=== PATIENT | male | born 1935 | race Caucasian/White ===

== ENCOUNTER → 2016-09-15 | Outpatient (CLI) | payer OTHER, MEDICARE ==
[~2016-09-15] MED LIST: ALBUAER19 INH; BMX1 PO; DOXY100C41 PO; FLUT44AE INH; LORA-741 PO; METH1TAB81 PO; OMEP10CA2 PO
== END | disposition home or self-care (01) ==
LOC: C.LAB1850 09:54
PROVIDERS: ATTEND Internal Medicine Pulmonary Disease
DX: J44.9 Chronic obstructive pulmonary disease, unspecified (principal); M10.00 Idiopathic gout, unspecified site; J90 Pleural effusion, not elsewhere classified; N28.9 Disorder of kidney and ureter, unspecified; J47.9 Bronchiectasis, uncomplicated

== ENCOUNTER → 2017-03-27 | Outpatient (CLI) | payer OTHER, MEDICARE ==
[2017-03-27 12:38] LABS: BASO % 0.9 %; BASO ABS # 0.05 K/uL (0-0.2); COMPLETE YES; EOS % 5.2 %; HEMATOCRIT 43.5 % (42-52); IG% 0.2 %; LYMPH % 30.8 %; LYMPH ABS # 1.67 K/uL (1.2-3.4); MEAN CELL VOLUME 87.3 fL (80-100); MEAN CORPUSCULAR HEMOGLOBIN 29.7 pg (25-34); MEAN PLATELET VOLUME 9.9 fL (7.4-10.4); MONO % 10.5 %; NEUT % 52.4 %; PLATELET COUNT 220 K/uL (130-400); RED BLOOD COUNT 4.98 M/uL (4.7-6.1); WHITE BLOOD COUNT 5.42 K/uL (4.8-10.8)
[2017-03-27 12:40] LABS: ALT/SGPT 22 U/L (12-78); AST/SGOT 25 U/L (15-37); BLOOD UREA NITROGEN 20 mg/dl (7-18); BUN/CREATININE RATIO 11.7 (10-20); CALCIUM 8.9 mg/dl (8.5-10.1); CARBON DIOXIDE 27 mmol/L (21-32); CHLORIDE 105 mmol/L (98-107); GLUCOSE 84 mg/dl (70-99); SODIUM 138 mmol/L (136-145); URIC ACID 6.4 mg/dl (2.6-7.2)
[2017-03-27 12:51] LABS: ALB/GLOB RATIO 0.9 (0.9-2); ALKALINE PHOSPHATASE 92 U/L (45-117)
== END | disposition home or self-care (01) ==
LOC: C.LAB1850 10:13
PROVIDERS: ATTEND Internal Medicine Pulmonary Disease
DX: J90 Pleural effusion, not elsewhere classified (principal)

== ENCOUNTER → 2017-04-21 | Outpatient (CLI) | payer OTHER, MEDICARE ==
--- NOTE | 2017-04-21 10:28 | DIAGNOSTIC IMAGING REPORT ---
CHEST 2 VIEWS ROUTINE CLINICAL HISTORY: R05 [id number] COMPARISON STUDY: 06/16/2016 FINDINGS: The cardiac and mediastinal contours remain stable. There is a persistent moderate left pleural effusion. There is a 2 cm left mid to lower lung zone pulmonary nodule which appears slightly smaller than the prior study. There is persistent left lower lobe atelectasis/consolidation.[ The right lung is clear IMPRESSION: 1. Persistent moderate left pleural effusion with associated left lower lobe atelectasis/consolidation 2. 2 cm left mid to lower lung zone pulmonary nodule which appears slightly smaller than on the preceding study Electronically signed by: Matt Salmeron M.D. 04/21/2017 10:27 AM Dictated Date/Time: 04/21/2017 10:25 AM
[2017-04-21 12:41] LABS: ESTIMATED AVERAGE GLUCOSE 108 mg/dl; HA1C FLAG Normal (Normal)
--- NOTE | 2017-05-01 13:24 | CODING QUERY MEDICAL NECESSITY ---
SUPPORTING DIAGNOSIS NEEDED A supporting diagnosis is required for the test/procedure performed on this patient in order for us to be reimbursed by the patient's insurance. Please provide a supporting diagnosis for the following test/procedure listed below next to the test name along with your signature. *If there is no additional diagnosis for this patient that would support the following test/procedure please document that below next to the test/procedure. Test(s)/Procedure(s) that require a supporting diagnosis: * VITAMIN B12 DIAGNOSIS: * FOLIC ACID DIAGNOSIS: * HEMOGLOBIN A1C DIAGNOSIS: Provider Signature: Date: Thank you Hannah Breaux [facility] [employer] Once completed, please kindly fax back to [phone] For questions please call [phone]
== END | disposition home or self-care (01) ==
LOC: C.RAD1850 10:02
PROVIDERS: ATTEND Physician Assistant Medical
DX: R05 Cough (principal); R06.2 Wheezing; R91.1 Solitary pulmonary nodule; J98.11 Atelectasis; R20.0 Anesthesia of skin

== ENCOUNTER → 2017-05-15 | Outpatient (CLI) | payer OTHER, MEDICARE | END | disposition home or self-care (01) | LOC: C.LAB1850 09:57 | PROVIDERS: ATTEND Physician Assistant Medical | DX: N28.9 Disorder of kidney and ureter, unspecified (principal) ==

== ENCOUNTER → 2017-05-25 | Outpatient (CLI) | payer OTHER, MEDICARE | END | disposition home or self-care (01) | LOC: C.LAB1850 09:23 | PROVIDERS: ATTEND Physician Assistant Medical | DX: R20.0 Anesthesia of skin (principal) ==